=== PATIENT | female | born 1980 | race Caucasian/White ===

== ENCOUNTER → 2016-09-24 | Outpatient (CLI) | payer BC ==
[~2016-09-24] VITALS: Ht 171.4 cm; Wt 121.3 kg
[~2016-09-24] MED LIST: ADVIL200 MG PO; NAPROSYN500 MG PO
[2016-09-24 15:08] VITALS: BP 106/80; PULSE 72
== END ==
LOC: LIGHT
DX: E16.1 Other hypoglycemia (principal); E78.5 Hyperlipidemia, unspecified; E88.81 Metabolic syndrome and other insulin resistance; E66.9 Obesity, unspecified; Z68.41 Body mass index [BMI] 40.0-44.9, adult; Z71.3 Dietary counseling and surveillance; G47.33 Obstructive sleep apnea (adult) (pediatric)

== ENCOUNTER → 2016-10-02 | Outpatient (CLI) | payer BC | LOC: LIGHT 10-01 10:38 | DX: Z01.818 Encounter for other preprocedural examination (principal) ==

== ENCOUNTER → 2016-10-17 | Outpatient (CLI) | payer BC ==
[~2016-10-17] VITALS: Ht 171.4 cm; Wt 120.2 kg
[2016-10-17 09:31] VITALS: BP 114/86; PULSE 72
== END ==
LOC: LIGHT 09:28
DX: E78.5 Hyperlipidemia, unspecified (principal); R73.01 Impaired fasting glucose; E66.01 Morbid (severe) obesity due to excess calories; Z68.41 Body mass index [BMI] 40.0-44.9, adult; Z71.3 Dietary counseling and surveillance; J30.9 Allergic rhinitis, unspecified

== ENCOUNTER → 2016-10-30 | Outpatient (CLI) | payer BC | LOC: LIGHT 14:54 | DX: E66.01 Morbid (severe) obesity due to excess calories (principal); Z68.41 Body mass index [BMI] 40.0-44.9, adult; Z71.3 Dietary counseling and surveillance ==

== ENCOUNTER → 2016-11-06 | Outpatient (CLI) | payer BC | LOC: BHSO 08:52 | DX: Z01.818 Encounter for other preprocedural examination (principal) ==

== ENCOUNTER → 2016-11-28 | Outpatient (CLI) | payer BC ==
[~2016-11-28] VITALS: Ht 171.4 cm; Wt 122.5 kg
[2016-11-28 15:11] VITALS: BP 124/84; PULSE 64
== END ==
LOC: LIGHT 10:30
DX: E78.5 Hyperlipidemia, unspecified (principal); R73.01 Impaired fasting glucose; J30.9 Allergic rhinitis, unspecified; E66.01 Morbid (severe) obesity due to excess calories; Z68.41 Body mass index [BMI] 40.0-44.9, adult

== ENCOUNTER → 2017-01-06 | Outpatient (CLI) | payer BC ==
[~2017-01-06] VITALS: Ht 171.4 cm; Wt 123.6 kg
[2017-01-06 14:43] VITALS: BP 122/80; PULSE 76
== END ==
LOC: LIGHT 08:49
DX: E78.5 Hyperlipidemia, unspecified (principal); R73.01 Impaired fasting glucose; E66.01 Morbid (severe) obesity due to excess calories; Z68.41 Body mass index [BMI] 40.0-44.9, adult; Z71.3 Dietary counseling and surveillance; J30.9 Allergic rhinitis, unspecified

== ENCOUNTER → 2017-02-17 | Outpatient (CLI) | payer BC ==
[~2017-02-17] VITALS: Ht 172.7 cm; Wt 115.4 kg
[~2017-02-17] MED LIST changes: +CALCIUM CITRATE1 TA1 PO; +MULTIPLE VITAMI1 CAP PO
[2017-02-17 15:50] VITALS: BP 124/90; PULSE 100
== END ==
LOC: LIGHT 08:25
DX: E78.5 Hyperlipidemia, unspecified (principal); R73.01 Impaired fasting glucose; E66.01 Morbid (severe) obesity due to excess calories; Z68.38 Body mass index [BMI] 38.0-38.9, adult; Z71.3 Dietary counseling and surveillance; J30.9 Allergic rhinitis, unspecified

== ENCOUNTER → 2017-03-17 | Outpatient (CLI) | payer BC ==
[~2017-03-17] VITALS: Ht 172.7 cm; Wt 109.5 kg
[2017-03-17 15:05] VITALS: BP 120/86; PULSE 76
== END ==
LOC: LIGHT 08:52
DX: E78.5 Hyperlipidemia, unspecified (principal); R73.01 Impaired fasting glucose; E66.01 Morbid (severe) obesity due to excess calories; Z68.36 Body mass index [BMI] 36.0-36.9, adult; Z71.3 Dietary counseling and surveillance; J30.9 Allergic rhinitis, unspecified

== ENCOUNTER → 2017-05-12 | Outpatient (CLI) | payer BC ==
[~2017-05-12] VITALS: Ht 172.7 cm; Wt 100.9 kg
[2017-05-12 15:06] VITALS: BP 120/80; PULSE 56
== END ==
LOC: LIGHT 14:55
DX: E78.5 Hyperlipidemia, unspecified (principal); R73.01 Impaired fasting glucose; E66.01 Morbid (severe) obesity due to excess calories; Z68.33 Body mass index [BMI] 33.0-33.9, adult; Z71.3 Dietary counseling and surveillance; J30.9 Allergic rhinitis, unspecified

== ENCOUNTER → 2017-08-04 | Outpatient (CLI) | payer BC ==
[~2017-08-04] VITALS: Ht 172.7 cm; Wt 90.7 kg
[~2017-08-04] MED LIST changes: +NATURE'S BLE1000 MCG PO
[2017-08-04 15:07] VITALS: BP 110/72; PULSE 60
== END ==
LOC: LIGHT 14:40
DX: E78.5 Hyperlipidemia, unspecified (principal); R73.01 Impaired fasting glucose; Z98.84 Bariatric surgery status; J30.9 Allergic rhinitis, unspecified; Z68.30 Body mass index [BMI] 30.0-30.9, adult; Z71.3 Dietary counseling and surveillance
CPT/HCPCS: G0463

== ENCOUNTER → 2018-02-16 | Outpatient (CLI) | payer BC ==
[~2018-02-16] VITALS: Ht 172.7 cm; Wt 84.4 kg
[2018-02-16 16:58] VITALS: BP 94/60; PULSE 52
== END ==
LOC: LIGHT 15:13
DX: E78.5 Hyperlipidemia, unspecified (principal); R73.01 Impaired fasting glucose; J30.9 Allergic rhinitis, unspecified; Z98.84 Bariatric surgery status; Z68.28 Body mass index [BMI] 28.0-28.9, adult; Z71.3 Dietary counseling and surveillance
CPT/HCPCS: G0463